=== PATIENT | female | born 1980 | race Caucasian/White ===

== ENCOUNTER 2021-07-27 22:12 | Emergency (ER) | payer OTHER ==
[~2021-07-27] VITALS: Ht 167.6 cm; Wt 72.6 kg
[2021-07-27 22:55] VITALS: BP 107/48
[2021-07-27 23:04] LABS: BASO # 0.1 10*3/uL (0.0-0.1); EOS # 0.3 10*3/uL (0.0-0.4); EOS % 6.7 % (1.0-4.0); HEMATOCRIT 37.5 % (37.0-47.0); LYMPH % 38.7 % (27.0-41.0); MEAN CELL VOLUME 90.4 fl (81.0-99.0); MEAN CORPUSCULAR HGB 31.1 pg (27.0-31.0); MEAN CORPUSCULAR HGB CONC 34.4 g/dl (33.0-37.0); MEAN PLATELET VOLUME 10.3 fl (9.6-12.3); MONO # 0.4 10*3/uL (0.1-1.0); MONO % 8.3 % (3.0-9.0); NEUT # 2.3 10*3/uL (2.3-7.9); NEUT % 45.1 % (47.0-73.0); PLATELET COUNT AUTOMATED 273 10*3/uL (130-400); RED BLOOD COUNT 4.15 10*6/uL (4.10-5.10); RED CELL DISTRI WIDTH 12.8 % (0-14.5)
[2021-07-27 23:14] LABS: INTERNATIONAL NORM RATIO 1.1 (2.0-3.5)
[2021-07-27] MEDS ORDERED: METOPROLOL SUCC25 M2 PO (23:17)
[2021-07-27] MEDS ORDERED: ASPIRIN ADULT L81 M1 PO (23:17)
[2021-07-27 23:18] LABS: ALBUMIN 3.7 gm/dl (3.1-4.5); ALKALINE PHOSPHATASE 41 U/L (45-117); BUN 6 mg/dl (7-24); CHLORIDE 107 mmol/L (98-107); CREATININE 0.57 mg/dL (0.55-1.02); POTASSIUM 3.5 mmol/L (3.5-5.1); SGOT/AST 11 IU/L (3-35); SGPT/ALT 22 U/L (12-78); SODIUM 139 mmol/L (136-145); TOTAL PROTEIN 7.3 gm/dL (6.4-8.2)
== END 2021-07-28 03:22 | disposition home or self-care (01) ==
LOC: ED 22:12
PROVIDERS: Emergency Medicine
DX: R07.9 Chest pain, unspecified (principal); R11.0 Nausea; Z79.899 Other long term (current) drug therapy; Z79.82 Long term (current) use of aspirin